=== PATIENT | male | born 1985 | race Caucasian/White ===

== ENCOUNTER 2020-10-11 16:04 | Outpatient (CLI) | payer BC, SELFPAY ==
--- NOTE | ~2020-10-11 | US_ITS ---
EXAMINATION: US scrotum doppler DATE: 10/11/2020 16:50 INDICATION: Left scrotal pain, epididymitis TECHNIQUE: Testicular sonogram utilizing grayscale and Doppler COMPARISON: None. FINDINGS: The right testis measures 4.7 x 2.5 x 2.8 cm. The left testis measures 5.0 x 2.6 x 2.8 cm. There is normal vascular flow to both testes. The right epididymis is normal with normal vascular claudia w. The left epididymis contains small cystic areas measuring up to 1.6 x 0.6 x 0.7 cm. There is no va ricocele or hydrocele. IMPRESSION: 1. Cyst or a pneumatoceles of the left epididymis without acute findings identified. Reviewed, dictated and finalized at location A. IMPRESSION: 1. Cyst or a pneumatoceles of the left epididymis without acute findings identi fied.
== END 2020-10-11 16:05 | disposition home or self-care (01) ==
LOC: ANHIMG 16:13
PROVIDERS: PCP Family Medicine; Visit Provider Urology
DX: N45.1 Epididymitis (principal); N50.3 Cyst of epididymis
CPT/HCPCS: 76870; 93976

== ENCOUNTER 2021-02-24 14:05 | Outpatient (CLI) | payer BC, SELFPAY ==
--- NOTE | ~2021-02-24 | XR_ITS ---
EXAMINATION: XR hand LT 2V DATE: 02/24/2021 14:25 INDICATION: Left hand pain. TECHNIQUE: 2 views of left hand were obtained. COMPARISON: None. FINDINGS: Bone alignment is normal. No fracture. There is mild osteoarthritis of first carpometacarpa l joint. IMPRESSION: 1. Mild osteoarthritis of first carpometacarpal joint. Reviewed, dictated and finalized at location A.
--- NOTE | ~2021-02-24 | XR_ITS ---
EXAMINATION: XR hand RT 2V DATE: 02/24/2021 14:25 INDICATION: Right hand pain. TECHNIQUE: 2 views of right hand were obtained. COMPARISON: None. FINDINGS: Bone alignment is normal. No fracture. Joint spaces are normal. IMPRESSION: 1. Normal right hand. Reviewed, dictated and finalized at location A. IMPRESSION: 1. Normal right hand.
== END 2021-02-24 14:06 | disposition home or self-care (01) ==
PROVIDERS: PCP Family Medicine; Visit Provider Physician Assistant
DX: M79.643 Pain in unspecified hand (principal); M25.539 Pain in unspecified wrist; M19.042 Primary osteoarthritis, left hand
CPT/HCPCS: 73120